=== PATIENT | female | born 1995 | race Caucasian/White ===

== ENCOUNTER → 2017-01-26 | Outpatient (CLI) | payer OTHER | LOC: CTENTCT 15:52 | PROVIDERS: ATTEND Specialist | DX: J32.9 Chronic sinusitis, unspecified (principal) | CPT/HCPCS: 70486 ==

== ENCOUNTER 2017-05-12 07:25 | Day surgery (SDC) | payer OTHER ==
[2017-05-11 10:09] VITALS: BMI 19.9
[2017-05-12] MEDS ORDERED: Oxymetazoline HCl 0.05% ( 15 ML ) ONE ×2 (08:24→09:22)
[2017-05-12 08:47] LABS: BHCG - Serum Negative (NEGATIVE); Pregs Control Background? CLEAR/WHITE (CLR/WHITE); Pregs Control Bar Appear? YES (CONTROL BAR)
[2017-05-12] MEDS ORDERED: Lidocaine 1% w/Epinephrine 1:200K 30 ML VIAL ONE (09:22)
[2017-05-12] MEDS ORDERED: Bacitracin Zinc Ointment 30 gm TUBE ONE (09:22)
[2017-05-12] MEDS ORDERED: Fentanyl 100 MCG/2 ML VIAL ONE ×3 (09:24→11:32)
[2017-05-12] MEDS ORDERED: Midazolam HCl 2 mg/2 ml Vial ONE ×2 (09:24→09:32)
[2017-05-12] MEDS ORDERED: diphenhydrAMINE 50 MG/ML VIAL ONE (12:06)
[2017-05-12] MEDS ORDERED: traMADol HCl 50 MG TAB ONE (13:37)
[2017-05-12] MEDS ORDERED: Dexamethasone 20 MG/5 ML VIAL ONE (13:47)
[2017-05-12] MEDS ORDERED: Lidocaine 1% PF 5 ML VIAL ONE (13:47)
[2017-05-12] MEDS ORDERED: Ondansetron HCl/PF 4 MG/2 ML Vial ONE (13:47)
[2017-05-12] MEDS ORDERED: PHENYLEPHRINE-NS 100 MCG/ML 10 ML SYRINGE ONE (13:47)
[2017-05-12] MEDS ORDERED: PROPOFOL 200 MG/20 ML VIAL ONE (13:47)
--- NOTE | 2017-05-12 15:34 | OP ---
PREOPERATIVE DIAGNOSES: Chronic sinusitis, chronic frontal sinusitis headache, and hypertrophic infe rior turbinates. POSTOPERATIVE DIAGNOSES: Chronic sinusitis, chronic frontal sinusitis headache, and hypertrophic inf erior turbinates. PROCEDURES PERFORMED: 1. Bilateral nasal endoscopy with maxillary antrostomy. 2. Bilateral nasal endoscopy with total ethmoidectomy. 3. Bilateral nasal endoscopy with sphenoidotomy. 4. Bilateral nasal endoscopy with frontal sinusotomy. 5. Bilateral nasal endoscopy with submucosal resection inferior turbinates. DESCRIPTION OF PROCEDURE: After consent was obtained, the patient was identified, brought to the ope rating room, and placed on the operating room table in the supine position. Consent was obtained, no tifying the patient of the possibility of additional infections, bleeding, brain injury, and eye/orbi starr injury. The patient was placed on the operating room table, and general endotracheal anesthesia and intravenous access was obtained. The patient was then positioned, prepped and draped for endosc opic sinus surgery. Nasal preparation included trimming nasal vestibular hairs and spraying in topic al Afrin. We then placed Afrin topical solution on nasal pledgets and strategically located them int ranasally. The perinasal mucosa was injected with 1% lidocaine with 1:100,000 epinephrine in the sub mucoperichondrial plane of the septum, lateral nasal wall, and anterior to the uncinate. The patient was then prepped and draped in a sterile fashion and positioned for endoscopic sinus surgery. The uncinate was then identified and the extent of the uncinate was appreciated by out-fracturing the uncinate with the ball-tip probe. We then used the sickle blade to disarticulate the uncinate from the lateral nasal wall. This was then removed with straight biting and upbiting punches with the remaining shrouds of mucosa and bony septum removed with the micro-debr ider. The natural os of the maxillary sinus was then identified and enlarged with the maxillary punc hes and back biting forceps. The anterior face of the ethmoid bulla was entered and with the micro-debrider, dissection continued posteriorly to the ground lamella. The limits of dissection inc luded the insertion of the middle turbinate, medial orbital wall, and base of skull. We similarly id entified the frontal recess and removed shrouds of bone and debris in that region to obtain patency i nto the agger nasi region and frontal recess. We then entered the ground lamella and its anteroinfer ior aspect and proceeded posteriorly, opening the posterior ethmoid air-cell system. Again, the limi ts of dissection included the base of skull and medial orbital wall. The anterior face of the sphenoid was identified and entered in its extreme anteroinferior aspect. A sphenoid punch was then used to enlarge the sphenoidotomy and no injury to the optic nerve or rn internal medicine al carotid artery occurred. With the 0-degree endoscope, the patient underwent systematic nasal endoscopy. There were no suspici ous internasal masses or lesions identified. We then focused our attention to the osteomeatal comple x region under the middle turbinate. The inferior turbinates were visualized under endoscopic visualization and outfractured with the elev ator. The inferolateral edge of the inferior turbinate was then cauterized along its length with the suction cautery without difficulty. At this point, we then turned our attention to the contralateral side and proceeded with endoscopic s inus surgery. At the completion of the case, Rice keel splints were placed in the ethmoid cavities after the ethmoi dectomy. There were no complications. The patient tolerated the procedure well and was discharged t o the recovery room in stable condition prior to return to the preoperative Day Stay with [facility]. Prescriptions for pain medication and antibiotics were provided. The patient received intramuscular Depo-Medrol during the case.
== END 2017-05-12 14:10 | disposition home or self-care (01) ==
LOC: SDC 07:25
PROVIDERS: ATTEND Specialist
PROC: 09TL8ZZ Resection of Nasal Turbinate, Via Natural or Artificial Opening Endoscopic (ICD-10-PCS; principal; 2017-05-12)
PROC: 099S8ZZ Drainage of Right Frontal Sinus, Via Natural or Artificial Opening Endoscopic (ICD-10-PCS; principal; 2017-05-12)
PROC: 09TV8ZZ Resection of Left Ethmoid Sinus, Via Natural or Artificial Opening Endoscopic (ICD-10-PCS; principal; 2017-05-12)
PROC: 099W8ZZ Drainage of Right Sphenoid Sinus, Via Natural or Artificial Opening Endoscopic (ICD-10-PCS; principal; 2017-05-12)
PROC: 099T8ZZ Drainage of Left Frontal Sinus, Via Natural or Artificial Opening Endoscopic (ICD-10-PCS; principal; 2017-05-12)
PROC: 099X8ZZ Drainage of Left Sphenoid Sinus, Via Natural or Artificial Opening Endoscopic (ICD-10-PCS; principal; 2017-05-12)
PROC: 099R8ZZ Drainage of Left Maxillary Sinus, Via Natural or Artificial Opening Endoscopic (ICD-10-PCS; principal; 2017-05-12)
PROC: 09TU8ZZ Resection of Right Ethmoid Sinus, Via Natural or Artificial Opening Endoscopic (ICD-10-PCS; principal; 2017-05-12)
PROC: 099Q8ZZ Drainage of Right Maxillary Sinus, Via Natural or Artificial Opening Endoscopic (ICD-10-PCS; principal; 2017-05-12)
DX: J32.1 Chronic frontal sinusitis (principal); J34.3 Hypertrophy of nasal turbinates
CPT/HCPCS: 84703; 85014; 96374; J1100; J1200; J2001; J2250; J2405; J2704; J3010